=== PATIENT | male | born 2000 | race Caucasian/White ===

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

== ENCOUNTER 2023-07-07 09:31 | Emergency (ER) | payer BC ==
[2023-07-07] MEDS ORDERED: Morphine 4 MG/ML VIAL IVPUSH ONE (09:41)
[2023-07-07] MEDS ORDERED: Ondansetron 4 MG/2 ML SDV IVPUSH ONE (09:41)
[2023-07-07] MEDS ORDERED: Sodium Chloride 0.9% 1,000 ML IV SCH (09:45)
[2023-07-07 09:50] LABS: BLOOD UREA NITROGEN,BUN 20 mg/dL (7-18); CALCIUM 9.1 mg/dL (8.6-10.2); CARBON DIOXIDE,CO2 32 mmol/L (21-32); CHLORIDE,CL 104 mmol/L (100-110); ESTIMATED GFR 109 mL/min (>60); GLUCOSE RANDOM 112 mg/dL (80-116); POTASSIUM,K 4.3 mmol/L (3.5-5.3); SODIUM,NA 139 mmol/L (135-145)
[2023-07-07 09:56] LABS: ALANINE AMINOTRANSFERASE,ALT 49 U/L (12-36); ALBUMIN 3.4 g/dL (3.5-5.2); ALKALINE PHOSPHATASE 72 IU/L (56-112); AMYLASE 42 U/L (25-115); ASPARTATE AMNIOTRANSFERASE,AST 27 IU/L (5-25); BILIRUBIN TOTAL 0.8 mg/dL (0.1-1.3); PROTEIN TOTAL,TP 6.8 g/dL (6.0-8.0)
[2023-07-07] MEDS ORDERED: Iopamidol 755 Mg/ML 100 ML Bottle IV SCH (10:15)
[2023-07-07 12:07] VITALS: BP 134/74; PULSE 77
== END 2023-07-07 11:54 | disposition home or self-care (01) ==
LOC: FB.ED 09:31
DX: R10.9 Unspecified abdominal pain (principal); K59.00 Constipation, unspecified; Z88.0 Allergy status to penicillin; Z91.018 Allergy to other foods; Z91.048 Other nonmedicinal substance allergy status
CPT/HCPCS: 36415; 74177; 80053; 82150; 83690; 96360; 99283; 99284-25; J7030; Q9967